=== PATIENT | male | born 1965 | race Caucasian/White ===

== ENCOUNTER 2018-02-16 14:27 | Emergency (ER) | payer BC ==
[~2018-02-16] VITALS: Ht 177.8 cm; Wt 86.2 kg
[2018-02-16 14:40] VITALS: BP_SYST 143
[2018-02-16] MEDS ORDERED: KETOROLAC TROMETHAMINE 60 MG/2 ML VIAL IM ONE (14:45)
[2018-02-16 15:18] LABS: CALCIUM 8.9 mg/dL (8.4-11.0); CREATININE 0.98 mg/dL (0.55-1.30); POTASSIUM 3.9 mmol/L (3.5-5.1)
[2018-02-16 15:23] LABS: ALBUMIN 3.9 g/dL (3.4-4.8); TOTAL BILIRUBIN 0.7 mg/dL (0.0-1.0)
[2018-02-16 15:24] LABS: BASOPHILS # (AUTO) 0.1 K/uL (0.0-0.2); BASOPHILS % (AUTO) 0.5 % (0.0-2.0); EOSINOPHILS # (AUTO) 0.1 K/uL (0.0-0.4); EOSINOPHILS % (AUTO) 1.3 % (0.0-4.0); HEMATOCRIT 44.4 % (36-54); HEMOGLOBIN 14.9 g/dL (14.0-18.0); LYMPHOCYTES # (AUTO) 0.8 K/uL (1.0-5.5); MEAN CORPUSCULAR HEMOGLOBIN 31 pg (27-31); MEAN CORPUSCULAR HGB CONC 34 % (32-36); MEAN CORPUSCULAR VOLUME 94 fL (79.0-98.0); MONOCYTES # (AUTO) 0.7 K/uL (0.0-1.0); MONOCYTES % (AUTO) 6.6 % (1.7-9.3); NEUTROPHILS # (AUTO) 8.6 K/uL (1.8-7.7); NEUTROPHILS % (AUTO) 83.6 % (40.0-70.0); PLATELET COUNT (AUTO) 211 K/uL (130-430); RED BLOOD CELL COUNT(AUTO) 4.74 MIL/uL (4.2-6.2); RED CELL DISTRIBUTION WIDTH 12.1 % (9.0-15.0); WHITE BLOOD COUNT (AUTO) 10.3 K/uL (4.8-10.8)
[2018-02-16 15:49] VITALS: BP_SYST 123
== END 2018-02-16 15:46 | disposition home or self-care (01) ==
LOC: SED 14:27
DX: J20.8 Acute bronchitis due to other specified organisms (principal); B97.89 Other viral agents as the cause of diseases classified elsewhere; R07.89 Other chest pain; E11.9 Type 2 diabetes mellitus without complications; I10 Essential (primary) hypertension
CPT/HCPCS: 36415; 71045; 80053; 82550; 84484; 85025; 93005; 96372; 99285; J1885

== ENCOUNTER 2021-08-18 09:17 | Emergency (ER) | payer BC ==
[~2021-08-18] VITALS: Ht 177.8 cm; Wt 88.5 kg
[~2021-08-18 09:17] MED LIST: HYDR-3917 PO; NAPR-1172 PO
[2021-08-18 09:20] VITALS: BP_SYST 142
[2021-08-18] MEDS ORDERED: KETOROLAC TROMETHAMINE 60 MG/2 ML VIAL IM ONE (10:00)
[2021-08-18] MEDS ORDERED: TAMS-11 PO (12:14)
[2021-08-18] MEDS ORDERED: IBUP-1969 PO (12:14)
[2021-08-18] MEDS ORDERED: HYDR-3917 PO (12:14)
[2021-08-18] MEDS ORDERED: fentaNYL CITRATE/PF 100 MCG/2 ML AMP IM ONE (12:15)
[2021-08-18] MEDS ORDERED: fentaNYL CITRATE/PF 100 MCG/2 ML AMP ONE (12:16)
== END 2021-08-18 12:23 | disposition home or self-care (01) ==
LOC: SED 09:17
DX: R10.9 Unspecified abdominal pain (principal); I10 Essential (primary) hypertension; Z79.899 Other long term (current) drug therapy
CPT/HCPCS: 76770; 81002; 96372; 99284; J1885; J3010

== ENCOUNTER 2022-10-02 08:17 | Emergency (ER) | payer BC ==
[~2022-10-02] VITALS: Ht 177.8 cm; Wt 88.5 kg
[~2022-10-02 08:17] MED LIST changes: +IBUP-1969 PO; +TAMS-11 PO
[2022-10-02 08:23] VITALS: BP_SYST 156
--- NOTE | 2022-10-02 08:26 | NUR ---
ER at bedside examining patient.
--- NOTE | 2022-10-02 08:26 | NUR ---
Pt BIB self. C/O RUQ pain due to trauma from fall onset of 2 days ago. Pt states fall happened a week ago. 03/10 pain. No visible trauma. ROM full on R arm. Pt states past HX of HTN. AAOX4. PERRLA. Pt speaking in full complete sentences. NKA. Pt in bed with side rails up
[2022-10-02] MEDS ORDERED: KETOROLAC TROMETHAMINE 60 MG/2 ML VIAL IM ONE (08:30)
[2022-10-02 09:02] LABS: BASOPHILS % (AUTO) 0.8 % (0.0-2.0); EOSINOPHILS # (AUTO) 0.4 K/uL (0.0-0.4); HEMATOCRIT 46.4 % (36-54); HEMOGLOBIN 15.4 g/dL (14.0-18.0); LYMPHOCYTES # (AUTO) 1.6 K/uL (1.0-5.5); LYMPHOCYTES % (AUTO) 26.8 % (20.5-51.5); MEAN CORPUSCULAR HEMOGLOBIN 31 pg (27-31); MEAN CORPUSCULAR HGB CONC 33 % (32-36); MEAN CORPUSCULAR VOLUME 93 fL (79.0-98.0); MONOCYTES # (AUTO) 0.6 K/uL (0.0-1.0); MONOCYTES % (AUTO) 10.6 % (1.7-9.3); NEUTROPHILS # (AUTO) 3.3 K/uL (1.8-7.7); NEUTROPHILS % (AUTO) 55.8 % (40.0-70.0); PLATELET COUNT (AUTO) 188 K/uL (130-430); RED BLOOD CELL COUNT(AUTO) 5.02 MIL/uL (4.2-6.2); RED CELL DISTRIBUTION WIDTH 13.1 % (9.0-15.0); WHITE BLOOD COUNT (AUTO) 5.9 K/uL (4.8-10.8)
[2022-10-02 09:16] LABS: ALANINE AMINOTRANSFERASE 55 U/L (12-78); ALBUMIN 3.7 g/dL (3.4-4.8); ANION GAP 6 (5-15); ASPARTATE AMINOTRANSFERASE 35 U/L (10-37); CALCIUM 8.4 mg/dL (8.4-11.0); CHLORIDE 105 mmol/L (98-107); CREATININE 0.98 mg/dL (0.55-1.30); GFR AFRICAN AMERICAN 102 mL/min (>90); GLUCOSE 127 mg/dL (70-99); TOTAL BILIRUBIN 0.5 mg/dL (0.0-1.0); UREA NITROGEN, BLOOD 13 mg/dL (8-21)
[2022-10-02] MEDS ORDERED: IBUP-1969 PO (10:04)
[2022-10-02] MEDS ORDERED: TRAM50TA2 PO (10:04)
[2022-10-02] MEDS ORDERED: IBUP-1971 PO (10:04)
--- NOTE | 2022-10-02 10:10 | NUR ---
Patient given written and verbal discharge instructions and verbalizes understanding. ER MD discussed with patient the results and treatment provided. Patient in stable condition. ID arm band removed. Rx of IBUPROFEN, TRAMADOL given. Patient educated on pain management and to follow up with PMD. Opportunity for questions provided and answered. Medication side effect fact sheet provided.
[2022-10-02 10:13] VITALS: BP_SYST 156
== END 2022-10-02 10:10 | disposition home or self-care (01) ==
LOC: SED 08:17
DX: R07.89 Other chest pain (principal); Z79.899 Other long term (current) drug therapy
CPT/HCPCS: 99285; 71045; 80053; 82550; 85025; 84484; 36415; 96372; J1885; 93005

== ENCOUNTER 2022-10-13 12:16 | Emergency (ER) | payer BC ==
[~2022-10-13] VITALS: Ht 177.8 cm; Wt 87.5 kg
[~2022-10-13 12:16] MED LIST changes: +IBUP-1971 PO; +TRAM50TA2 PO
[2022-10-13 12:24] VITALS: BP_SYST 131
[2022-10-13] MEDS ORDERED: KETOROLAC TROMETHAMINE 30 MG VIAL IM ONE (12:45)
[2022-10-13] MEDS ORDERED: HYDROcodone/ACETAMIN 5-325 MG TAB (NORCO/ VICODIN) PO ONE (12:45)
[2022-10-13] MEDS ORDERED: PERC10 PO (13:12)
[2022-10-13] MEDS ORDERED: ACET-2634 PO (13:12)
[2022-10-13] MEDS ORDERED: NAPR-1172 PO (13:12)
[2022-10-13 13:31] VITALS: BP_SYST 131
== END 2022-10-13 13:28 | disposition home or self-care (01) ==
LOC: SED 12:16
DX: M70.31 Other bursitis of elbow, right elbow (principal); R20.0 Anesthesia of skin; I10 Essential (primary) hypertension; Z79.899 Other long term (current) drug therapy; Y93.89 Activity, other specified
CPT/HCPCS: 99283; 73080; 96372; J1885

== ENCOUNTER 2022-11-23 09:34 | Emergency (ER) | payer OTHER, BC ==
[~2022-11-23] VITALS: Ht 172.7 cm; Wt 72.6 kg
[~2022-11-23 09:34] MED LIST changes: +ACET-2634 PO; +PERC10 PO
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
--- NOTE | 2022-11-23 09:40 | NUR ---
Dr. Hebert at bedside MSE patient.
[2022-11-23 09:45] VITALS: BP_SYST 134
[2022-11-23 09:49] VITALS: BP_SYST 124
[2022-11-23] MEDS ORDERED: carisoprodoL 350 MG TABLET PO ONE (10:30)
[2022-11-23] MEDS ORDERED: IBUPROFEN 800 MG TABLET PO ONE (10:30)
[2022-11-23] MEDS ORDERED: IBUP-1971 PO (11:18)
[2022-11-23] MEDS ORDERED: SOM350 PO (11:18)
--- NOTE | 2022-11-23 12:00 | NUR ---
Patient given written and verbal discharge instructions and verbalizes understanding. ER MD discussed with patient the results and treatment provided. Patient in stable condition. ID arm band removed. Rx of meds given. Patient educated on pain management and to follow up with PMD. Pain Scale . Opportunity for questions provided and answered. Medication side effect fact sheet provided.
== END 2022-11-23 12:00 | disposition home or self-care (01) ==
LOC: SED 09:34
DX: S33.5XXA Sprain of ligaments of lumbar spine, initial encounter (principal); S13.4XXA Sprain of ligaments of cervical spine, initial encounter; S40.011A Contusion of right shoulder, initial encounter; I10 Essential (primary) hypertension; Z79.899 Other long term (current) drug therapy; V49.40XA Driver injured in collision with unspecified motor vehicles in traffic accident, initial encounter; Y93.89 Activity, other specified; Y92.89 Other specified places as the place of occurrence of the external cause; Y99.8 Other external cause status
CPT/HCPCS: 72040-TC; 72100-TC; 73030; 99284

== ENCOUNTER 2023-06-29 06:25 | Emergency (ER) | payer BC ==
[~2023-06-29] VITALS: Ht 177.8 cm; Wt 92.1 kg
[~2023-06-29 06:25] MED LIST changes: +SOM350 PO
[2023-06-29 06:31] VITALS: BP_SYST 147; PULSE 95; RESP 17; TEMP 97.8; O2SAT 97
[2023-06-29] MEDS ORDERED: ONDANSETRON 4 MG ODT TAB PO ONE (06:45)
[2023-06-29] MEDS ORDERED: HYDROcodone/ACETAMIN 5-325 MG TAB (NORCO/ VICODIN) PO ONE (06:45)
[2023-06-29] MEDS ORDERED: DICYCLOMINE HCL 10 MG CAPSULE PO ONE (06:45)
[2023-06-29 07:24] LABS: BASOPHILS % (AUTO) 0.2 % (0.0-2.0); EOSINOPHILS # (AUTO) 0.2 K/uL (0.0-0.4); EOSINOPHILS % (AUTO) 1.1 % (0.0-4.0); HEMATOCRIT 47.4 % (36-54); HEMOGLOBIN 16.1 g/dL (14.0-18.0); LYMPHOCYTES % (AUTO) 5.5 % (20.5-51.5); MEAN CORPUSCULAR HEMOGLOBIN 31 pg (27-31); MEAN CORPUSCULAR HGB CONC 34 % (32-36); MEAN CORPUSCULAR VOLUME 91 fL (79.0-98.0); MONOCYTES # (AUTO) 1.2 K/uL (0.0-1.0); MONOCYTES % (AUTO) 6.9 % (1.7-9.3); NEUTROPHILS # (AUTO) 15.3 K/uL (1.8-7.7); NEUTROPHILS % (AUTO) 86.3 % (40.0-70.0); PLATELET COUNT (AUTO) 226 K/uL (130-430); RED CELL DISTRIBUTION WIDTH 12.9 % (9.0-15.0); WHITE BLOOD COUNT (AUTO) 17.7 K/uL (4.8-10.8)
[2023-06-29 08:03] LABS: CALCIUM 9.3 mg/dL (8.4-11.0); CREATININE 0.97 mg/dL (0.55-1.30)
[2023-06-29 08:07] LABS: ALBUMIN 4.1 g/dL (3.4-4.8); BILIRUBIN,DIRECT 0.1 mg/dL (0.0-0.3); TOTAL BILIRUBIN 0.5 mg/dL (0.0-1.0); TOTAL PROTEIN, SERUM 7.9 g/dL (6.4-8.3)
[2023-06-29 09:27] LABS: BILIRUBIN,URINE NEGATIVE (NEGATIVE); BLOOD, URINE NEGATIVE (NEGATIVE); CLARITY/URINE SL CLOUDY (CLEAR); COLOR,URINE YELLOW (YELLOW); GLUCOSE,URINE NEGATIVE (NEGATIVE); KETONES,URINE TRACE (NEGATIVE); LEUKOCYTE ESTERASE ,URINE NEGATIVE (NEGATIVE); NITRITE, URINE NEGATIVE (NEGATIVE); PH,URINE 8.5 (5.0-8.0); PROTEIN URINE NEGATIVE (NEGATIVE); UROBILINOGEN,URINE 0.2 (0.2-1.0)
[2023-06-29 09:38] LABS: BACTERIA,URINE None Seen /HPF (None Seen); RBC,URINE 0-3 /HPF (0-3); URINE AMORPHOUS PHOSPHATES 4+ /HPF (None Seen); WBC,URINE 0-3 /HPF (0-3)
[2023-06-29] MEDS ORDERED: PEPTAB PO (09:47)
[2023-06-29] MEDS ORDERED: DICY-14 PO (09:47)
[2023-06-29] MEDS ORDERED: ACET-2634 PO (09:47)
[2023-06-29] MEDS ORDERED: ONDA-8 TL (09:47)
== END 2023-06-29 10:45 | disposition home or self-care (01) ==
LOC: SED 06:25
DX: K52.9 Noninfective gastroenteritis and colitis, unspecified (principal); R11.2 Nausea with vomiting, unspecified; D72.829 Elevated white blood cell count, unspecified; R10.84 Generalized abdominal pain; I10 Essential (primary) hypertension; Z79.899 Other long term (current) drug therapy
CPT/HCPCS: 99284; 74176; 80076; 80048; 81001; 83690; 85025; 36415; 76376; 81000; 81015; Q0162